=== PATIENT | male | born 1965 | race Caucasian/White ===

== ENCOUNTER 2021-03-25 19:07 | Emergency (ER) | payer BC, SELFPAY ==
[2021-03-25 19:08] VITALS: BP 118/66; PULSE 104; RESP 17; TEMP 37.3; O2SAT 96; BMI 29.5
[2021-03-25 19:10] VITALS: BP 118/66; PULSE 104; RESP 17; TEMP 37.3; O2SAT 96
[2021-03-25 19:23] VITALS: BP 124/74; PULSE 80; RESP 17; TEMP 39.3; O2SAT 98
--- NOTE | 2021-03-25 20:35 | EDS_ITS ---
HPI History of Present Illness Chief Complaint: Fever Informant: patient Onset/Context/Timing Onset: Weeks (2) Context: Gradual Onset Timing: Continuous Quality: Aching Location: Generalized Worsened by: Nothing Relieved by: Nothing Narrative Narrative: Patient presents with fever, headache, and diarrhea that has been persistent over the past several days. Patient states he was diagnosed with COVID-19 2 weeks ago. Patient states his fever at home has been up to 104. P atient states his diarrhea is watery. Patient denies any melena or hematochezia. Patient does admit there is some mild dysuria. Patient also admits to a generalized headache. Patient also admits to a sore throat. Patient denies any chest pain or shortness of breath. Patient denies any cough. PFSH PFSH Medical History no medical history no medical history Home Medications NK 03/25/21 [History Last Taken Unknown] Allergy/AdvReac Type Severity Reaction Status Date / Time No Known Allergies Allergy Verified 03/25/21 19:10 Surgical History no surgical history no surgical history Social History Smoking Status: Never smoker ROS ROS ED Constitutional Constitutional ED: Reports fever(s); Denies chills Eyes Eyes: Denies blurry vision or change in vision ENT ENT ED: Reports sore throat; Denies rhinorrhea Cardiovascular Cardiovascular: Denies chest pain or palpitations Respiratory/Chest Respiratory/Chest: Denies cough or dyspnea Gastrointestinal Gastrointestinal: Reports diarrhea; Denies nausea or vomiting Genitourinary Genitourinary ED: Reports dysuria; Denies hematuria Musculoskeletal Musculoskeletal: Denies back pain or neck pain Integumentary Denies abscess or rash Neurologic Neurologic: Reports headache(s); Denies weakness Allergic/Immunologic Allergic/Immunologic ED: Denies mouth swelling or urticaria EXAM Physical Exam Const Vital Signs: 03/25/21 19:08 03/25/21 19:10 03/25/21 19:23 Temperature 99.2 F H 99.2 F H 102.8 F H Temperature Source Temporal Temporal Oral Pulse Rate 104 H 104 H 80 Respiratory Rate 17 17 17 Blood Pressure 118/66 118/66 124/74 H Blood Pressure Mean 83 83 90 Pulse Ox 96 96 98 Oxygen Delivery Method Room Air Room Air Room Air Positive well nourished and well developed General Appearance ED: well developed HEENT Reports moist mucous membranes Neck supple and no JVD Resp normal respiratory effort and clear to auscultation bilaterally Cardio regular rate, regular rhythm and no murmurs GI normal to inspection, nondistended, normoactive bowel sounds and non-tender Palpation: soft Extremity normal to inspection General Extremety ED: Negative for edema or tenderness General Extremity: Negative for edema Neuro oriented x3, CN's II-XII intact bilaterally and no sensory deficits noted Sensorium / Orientation: alert Motor Exam: strength 5/5 throughout Psych mental status grossly normal MDM MDM MDM Narrative Medical decision making narrative: Patient was given IV fluids, Reglan, and Benadryl. Patient states his headache was feeling better. Patient was given a dose of Tylenol. CT scan of the brain was obtained. There is no acute intracranial abnormality noted. This was interpreted by the radiologist and reviewed by myself. Chest x-ray was obtained. There is 1 view. On my interpretation, there are bilateral infiltrates consistent with COVID-19 pneumonia. CBC was within normal limits. Comprehensive metabolic profile showed a potassium of 2.8. Lactate was normal. Patient was given a dose of IV and oral potassium here. Patient states his headache has resolved. Lab Data Labs: Laboratory Results - last 24 hr 03/25/21 03/25/21 03/25/21 20:45 20:45 20:45 WBC 8.1 RBC 3.98 L Hgb 11.7 L Hct 34.6 L MCV 86.9 MCH 29.4 MCHC 33.8 RDW Std Deviation 41.1 RDW Coeff of Cliff 13.0 Plt Count 241 MPV 9.4 Immature Gran % (Auto) 0.500 Neut % (Auto) 82.8 H Lymph % (Auto) 10.0 L [place] % (Auto) 6.4 Eos % (Auto) 0.1 Baso % (Auto) 0.2 Absolute Neuts (auto) 6.7 Absolute Lymphs (auto) 0.81 L Nucleated RBC % 0 Sodium 135 L Potassium 2.8 L Chloride 99 Carbon Dioxide 26.0 Anion Gap 10 BUN 13 Creatinine 0.90 Estim Creat Clear Calc 93.83 Est GFR (MDRD) Af Amer 112 Est GFR (MDRD) Non-Af 93 BUN/Creatinine Ratio 14.4 Glucose 116 H Lactic Acid 1.2 Calcium 8.6 Total Bilirubin 0.60 AST 36 ALT 40 Alkaline Phosphatase 48 Total Protein 7.4 Albumin 2.7 L Globulin 4.7 H Albumin/Globulin Ratio 0.6 L Radiography Chest X-Ray - ED: 1 View, Read by ED Physician, Read by Radiologist, Right Infiltrate and Left Infiltrate Diagnostic Testing: Radiology Impression Brain CT 03/25/21 21:06 IMPRESSION: No acute intracranial abnormality. Electronically Signed: Steven Garcia MD at 21:24 EDT Tel , Service support , Chest X-Ray 03/25/21 21:10 IMPRESSION: Scattered consolidative infiltrates in both lungs worrisome for pneumonia. ASSESSMENT: ABNORMAL report - There are abnormal findings in this report which may be related or unrelated to the reason for the exam. Electronically Signed: Preez Ramos MD at 21:41 EDT Tel , Service support , Discharge Plan Triage Chief Complaint: Fever ED Provider: Rohit Gray Dx/Rx/DC Orders Clinical Impression: Pneumonia due to COVID-19 virus, Diarrhea, Headache, Hypokalemia Instructions: Coronavirus Disease 2019 (COVID-19): Caring for Yourself or Others, ED Diarrhea, Unknown Cause, ED Hypokalemia Prescriptions: No Action NK RF: 0 Primary Care Provider: Care Physician,No Primary Referrals: Fast,Macy, DO [NON-STAFF] - 5-7 Days Care Physician,No Primary [Primary Care Provider] - Disposition Disposition: Home, Self Care
[2021-03-25] MEDS: DiphenhydrAMINE 50 MG/ML Syringe 25 MG IV (20:52)
[2021-03-25] MEDS: Acetaminophen 500 MG Tablet 1000 MG PO (20:53)
[2021-03-25] MEDS: Metoclopramide 10 MG/2 ML Vial IV (20:53)
[2021-03-25 20:58] LABS: Absolute Lymphocyte Count 0.81 X10^3/uL (0.83-4.51); Absolute Neutrophil Count 6.7 X10^3/uL (2.0-7.7); Basophil# 0.02 X10^3/uL; Basophil% 0.2 % (0-1); Eosinophil# 0.01 X10^3/uL; Eosinophils% 0.1 % (0-5); Hematocrit 34.6 % (40-54); Hemoglobin 11.7 g/dL (13.0-16.5); Lymphocyte # 0.81 X10^3/ul (0.83-4.51); Mean Corp Hgb Conc 33.8 g/dL (32-36); Mean Corpuscular Hgb 29.4 pg (27.0-32.0); Mean Corpuscular Volume 86.9 fL (80-94); Mean Platelet Vol. 9.4 fl (6.2-12.0); Monocyte# 0.52 X10^3/uL; Monocyte% 6.4 % (0-10); NRBC Flagged by Analyzer 0 % (0-5); Neutrophil # 6.68 X10^3/uL (2.7-7.7); Neutrophil % 82.8 % (47-70); Platelet Count 241 K/mm3 (150-450); RBC Distribution Width SD 41.1 fl (35.1-43.9); Red Blood Count 3.98 M/mm3 (4.6-6.2); White Blood Count 8.1 K/mm3 (4.4-11.0)
--- NOTE | 2021-03-25 21:06 | CT_ITS ---
EXAMINATION : Head CT w/out contrast HISTORY : Pain COMPARISON : None. TECHNIQUE : Multiple contiguous axial images were obtained from the skull base to the vertex without intravenous contrast. A radiation dose optimization technique was used for this scan. FINDINGS : The ventricles and sulci are normal in size. There is no evidence for acute intracranial hemorrhage, mass effect, or midline shift. There is no extra-axial fluid collection. There is normal melton-white differentiation, without CT evidence of acute ischemia or infarct. The skull base and calvarium are unremarkable. The orbits are unremarkable. The paranasal sinuses are clear. The mastoid air cells are well-aerated. The soft tissues are unremarkable. CT/Brain/Head without Contrast IMPRESSION: No acute intracranial abnormality. Electronically Signed: Steven Garcia MD at 21:24 EDT Tel , Service support ,
--- NOTE | 2021-03-25 21:10 | RAD_ITS ---
EXAM: XR Chest, 1 View CLINICAL INDICATION: 55 years old, Male; cough TECHNIQUE: Frontal view of the chest. This report was created using [employer] report generation technology. COMPARISON: None. FINDINGS: Lungs and pleural spaces: Scattered consolidative infiltrates in both lungs worrisome for pneumonia. No pneumothorax. No effusion. Heart: Unremarkable. Cardiac silhouette not enlarged. Mediastinum: Central airways and mediastinal contour are unremarkable. Bones/joints: Unremarkable. Soft tissues: Unremarkable. RAD/Chest 1 View (Portable) IMPRESSION: Scattered consolidative infiltrates in both lungs worrisome for pneumonia. ASSESSMENT: ABNORMAL report - There are abnormal findings in this report which may be related or unrelated to the reason for the exam. Electronically Signed: Perez Ramos MD at 21:41 EDT Tel , Service support ,
[2021-03-25 21:14] LABS: ALB/GLOB Ratio 0.6 RATIO (0.9-2.4); AST(SGOT) 36 U/L (15-37); Alanine Aminotransfer ALT/SGPT 40 U/L (16-61); Albumin, Serum 2.7 g/dL (3.2-5.0); Alkaline Phosphatase 48 U/L (45-117); Anion Gap 10 (5-15); BUN 13 mg/dL (7-18); BUN/Creat Ratio 14.4 RATIO (10-20); Calcium,Total 8.6 mg/dL (8.5-10.1); Chloride 99 mmol/L (98-107); EST Glomerular Filtration Rate 93 mL/min (>60); Est Glom Filt Rate - Afr Amer 112 mL/min (>60); Estimated Creatinine Clearance 93.83 ml/min; Globulin 4.7 g/dL (2.2-4.2); Glucose 116 mg/dL (74-106); Potassium 2.8 mmol/L (3.5-5.1); Protein, Total 7.4 g/dL (6.4-8.2); Sodium Level 135 mmol/L (136-145)
[2021-03-25 21:22] LABS: Lactic Acid 1.2 mmol/L (0.4-1.9)
[2021-03-25] MEDS: Potassium Chloride 10mEq/100mL 10 MEQ/100 ML IV.SOLN. 100 MEQ IV BOLUS (22:22)
[2021-03-25] MEDS: Potassium Chloride Oral Tablet 20 MEQ 40 MEQ PO (22:22)
[2021-03-25 22:26] VITALS: BP 102/62; PULSE 74; RESP 21; TEMP 37.1; O2SAT 99
[2021-03-25 22:27] VITALS: BP 102/62; PULSE 74; RESP 17; RESP 19; TEMP 37.1; O2SAT 96
[2021-03-25 23:40] VITALS: BP 112/77; PULSE 69; RESP 19
== END 2021-03-25 23:40 | disposition home or self-care (01) ==
PROVIDERS: Emergency Provider Emergency Medicine
DX: U07.1 COVID-19 (principal); J12.82 Pneumonia due to coronavirus disease 2019; E87.6 Hypokalemia; R19.7 Diarrhea, unspecified; R51.9 Headache, unspecified; R30.0 Dysuria
CPT/HCPCS: 70450; 71045; 80053; 83605; 85025; 87040; 96365; 96366; 96375; 99285; J7030; J7050; A4216

== ENCOUNTER 2021-04-02 16:22 | Outpatient (CLI) | payer BC, SELFPAY ==
[2021-04-02 17:56] LABS: Absolute Lymphocyte Count 1.59 X10^3/uL (0.83-4.51); Absolute Neutrophil Count 2.9 X10^3/uL (2.0-7.7); Basophil# 0.02 X10^3/uL; Basophil% 0.4 % (0-1); Eosinophil# 0.08 X10^3/uL; Eosinophils% 1.6 % (0-5); Hematocrit 37.9 % (40-54); Hemoglobin 12.1 g/dL (13.0-16.5); Lymphocyte # 1.59 X10^3/ul (0.83-4.51); Lymphocyte % 31.9 % (19-41); Mean Corp Hgb Conc 31.9 g/dL (32-36); Mean Corpuscular Hgb 28.7 pg (27.0-32.0); Mean Platelet Vol. 9.5 fl (6.2-12.0); Monocyte# 0.42 X10^3/uL; Monocyte% 8.4 % (0-10); NRBC Flagged by Analyzer 0 % (0-5); Neutrophil # 2.85 X10^3/uL (2.7-7.7); Neutrophil % 57.3 % (47-70); Platelet Count 370 K/mm3 (150-450); RBC Distribution Width CV 13.5 % (11.6-14.6); RBC Distribution Width SD 43.8 fl (35.1-43.9); Red Blood Count 4.21 M/mm3 (4.6-6.2)
[2021-04-02 18:33] LABS: ALB/GLOB Ratio 0.7 RATIO (0.9-2.4); AST(SGOT) 26 U/L (15-37); Alanine Aminotransfer ALT/SGPT 62 U/L (16-61); Albumin, Serum 2.9 g/dL (3.2-5.0); Alkaline Phosphatase 67 U/L (45-117); Anion Gap 5 (5-15); BUN 5 mg/dL (7-18); BUN/Creat Ratio 6.5 RATIO (10-20); Calcium,Total 8.6 mg/dL (8.5-10.1); Chloride 106 mmol/L (98-107); Creatinine, Serum 0.77 mg/dL (0.70-1.30); EST Glomerular Filtration Rate 111 mL/min (>60); Est Glom Filt Rate - Afr Amer 134 mL/min (>60); Globulin 4.3 g/dL (2.2-4.2); Glucose 97 mg/dL (74-106); Potassium 3.5 mmol/L (3.5-5.1); Protein, Total 7.2 g/dL (6.4-8.2); Sodium Level 143 mmol/L (136-145)
== END 2021-04-02 23:59 | disposition home or self-care (01) ==
PROVIDERS: PCP Internal Medicine; Referring Provider Internal Medicine; Visit Provider Internal Medicine
DX: U07.1 COVID-19 (principal); E87.6 Hypokalemia
CPT/HCPCS: 36415; 80053; 85025

== ENCOUNTER → 2021-04-07 14:07 | Outpatient (CLI) | payer BC, SELFPAY ==
--- NOTE | 2021-04-07 14:09 | RAD_ITS ---
STUDY: X-RAY CHEST REASON FOR EXAM: Male, 56 years old. COVID TECHNIQUE: PA and lateral views of the chest. COMPARISON: 03/25/2021 FINDINGS: Similar left greater than right mid to lower lung infiltrates. There is no demonstrated pleural abnormality. Normal size heart. Normal mediastinum and ebony. Normal visualized pulmonary arteries. Normal visualized aortic arch and descending thoracic aorta. There are diffuse degenerative changes of the visualized thoracic spine. There is no demonstrated abnormality of the visualized soft tissue structures of the upper abdomen. RAD/Chest PA and Lateral IMPRESSION: Similar appearance of Covid pneumonia compared to 03/25/2021. Electronically Signed: Jorge Alberto He MD at 4:39 EDT Tel , Service support ,
== END ==
PROVIDERS: PCP Internal Medicine; Referring Provider Internal Medicine; Visit Provider Internal Medicine
DX: U07.1 COVID-19 (principal)
CPT/HCPCS: 71046

== ENCOUNTER 2021-04-18 14:59 | Outpatient (CLI) | payer BC, SELFPAY ==
[2021-04-18 15:23] LABS: D-Dimer Quantitative (DVT/PE) 0.31 FEU/ug/m (0.27-0.49)
[2021-04-18 15:41] LABS: ALB/GLOB Ratio 0.9 RATIO (0.9-2.4); AST(SGOT) 19 U/L (15-37); Alanine Aminotransfer ALT/SGPT 34 U/L (16-61); Albumin, Serum 3.7 g/dL (3.2-5.0); Alkaline Phosphatase 68 U/L (45-117); Anion Gap 8 (5-15); BUN 13 mg/dL (7-18); BUN/Creat Ratio 16.4 RATIO (10-20); Calcium,Total 8.7 mg/dL (8.5-10.1); Chloride 99 mmol/L (98-107); EST Glomerular Filtration Rate 107 mL/min (>60); Est Glom Filt Rate - Afr Amer 130 mL/min (>60); Glucose 91 mg/dL (74-106); Potassium 4.1 mmol/L (3.5-5.1); Protein, Total 7.7 g/dL (6.4-8.2); Sodium Level 135 mmol/L (136-145); Troponin-I HS 3 pg/mL (3.0-78.0)
== END 2021-04-18 23:59 | disposition home or self-care (01) ==
LOC: LABSPEC 15:01
PROVIDERS: PCP Internal Medicine; Visit Provider Internal Medicine
DX: U07.1 COVID-19 (principal); R07.9 Chest pain, unspecified
CPT/HCPCS: 80053; 84484; 85379

== ENCOUNTER 2021-05-09 10:27 | Outpatient (CLI) | payer BC, SELFPAY ==
[2021-05-09 10:43] LABS: Absolute Lymphocyte Count 1.48 X10^3/uL (0.83-4.51); Basophil# 0.03 X10^3/uL; Basophil% 0.5 % (0-1); Eosinophil# 0.25 X10^3/uL; Eosinophils% 3.9 % (0-5); Hemoglobin 13.1 g/dL (13.0-16.5); Lymphocyte # 1.48 X10^3/ul (0.83-4.51); Lymphocyte % 23.3 % (19-41); Mean Corp Hgb Conc 33.6 g/dL (32-36); Mean Corpuscular Hgb 30.3 pg (27.0-32.0); Mean Corpuscular Volume 90.1 fL (80-94); Mean Platelet Vol. 9.2 fl (6.2-12.0); Monocyte# 0.51 X10^3/uL; NRBC Flagged by Analyzer 0 % (0-5); Neutrophil # 4.03 X10^3/uL (2.7-7.7); Neutrophil % 63.7 % (47-70); Platelet Count 270 K/mm3 (150-450); RBC Distribution Width CV 14.7 % (11.6-14.6); RBC Distribution Width SD 49.2 fl (35.1-43.9); Red Blood Count 4.33 M/mm3 (4.6-6.2); White Blood Count 6.3 K/mm3 (4.4-11.0)
[2021-05-09 10:59] LABS: D-Dimer Quantitative (DVT/PE) 0.55 FEU/ug/m (0.27-0.49)
[2021-05-09 11:05] LABS: ALB/GLOB Ratio 0.9 RATIO (0.9-2.4); AST(SGOT) 21 U/L (15-37); Alanine Aminotransfer ALT/SGPT 41 U/L (16-61); Albumin, Serum 3.6 g/dL (3.2-5.0); Alkaline Phosphatase 64 U/L (45-117); Anion Gap 2 (5-15); BUN 12 mg/dL (7-18); BUN/Creat Ratio 15.1 RATIO (10-20); Calcium,Total 8.6 mg/dL (8.5-10.1); Chloride 103 mmol/L (98-107); EST Glomerular Filtration Rate 107 mL/min (>60); Est Glom Filt Rate - Afr Amer 130 mL/min (>60); Globulin 3.9 g/dL (2.2-4.2); Glucose 91 mg/dL (74-106); Potassium 4.2 mmol/L (3.5-5.1); Protein, Total 7.5 g/dL (6.4-8.2); Sodium Level 133 mmol/L (136-145); Troponin-I HS 4 pg/mL (3.0-78.0)
== END 2021-05-09 23:59 | disposition home or self-care (01) ==
LOC: LABSPEC 10:29
PROVIDERS: PCP Internal Medicine; Visit Provider Internal Medicine
DX: U07.1 COVID-19 (principal); R07.9 Chest pain, unspecified
CPT/HCPCS: 80053; 84443; 84484; 85025; 85379

== ENCOUNTER 2021-05-09 12:15 | Outpatient (CLI) | payer BC, SELFPAY ==
--- NOTE | 2021-05-09 12:41 | CT_ITS ---
STUDY: CTA CHEST REASON FOR EXAM: Male, 56 years old. POSITIVE D DIMER RADIATION DOSAGE (If Supplied By Facility): CTDIvol = ( 12.10 ) mGy, DLP = ( 484.64 ) mGycm TECHNIQUE: The examination was performed with the intravenous administration of IV 100mL [id number]-[id number]. Post-processing of the angiographic images was performed, with multiplanar reformation and 3D reconstruction. Individualized dose optimization techniques were used for this CT. COMPARISON: None. FINDINGS: Normal enhancement of the main pulmonary artery and right and left pulmonary arteries. Normal enhancement of the bilateral peripheral pulmonary arteries. There is no demonstrated pulmonary embolism. Normal thoracic aorta and visualized great vessels. There is no demonstrated aortic dissection. Normal heart and pericardium. There are visualized mediastinal lymph nodes, which are within normal size limits, and with normal morphology. Normal hilar regions. Normal visualized trachea and bronchi. The lungs are well expanded. There are mild increased markings in the anterior aspect of the left upper lobe. Mild increased markings are also seen in the lingular segment of the left upper lobe as well as in the left lung base suggestive of either mild pneumonitis versus resolving pneumonitis. Mild increased markings are also seen at the right lung base. Normal pleura. Normal chest wall structures. There are degenerative changes of thoracic spine. Normal visualized upper abdomen. CT/CTA Chest W/WO Contrast IMPRESSION: No evidence of pulmonary emboli. Mild degree of residual increased markings in both lungs as described suggestive of either persistent pneumonitis versus resolving pneumonitis. Electronically Signed: Leonard Pérez MD at 13:57 EST , Service support ,
== END 2021-05-09 23:59 | disposition home or self-care (01) ==
PROVIDERS: PCP Internal Medicine; Referring Provider Internal Medicine; Visit Provider Internal Medicine
DX: U07.1 COVID-19 (principal); R79.89 Other specified abnormal findings of blood chemistry
CPT/HCPCS: 71275; Q9967

== ENCOUNTER 2021-05-22 11:54 | Outpatient (CLI) | payer BC, SELFPAY ==
--- NOTE | 2021-05-23 13:00 | STRESSREP_ITS ---
Stress Test Report Date: 05/22/2021 Procedure: Exercise tolerance test Indications: Chest pain Consent: Per the patient Procedure: The patient exercised on a Obi protocol for 7 minutes and 45 seconds achieving a peak heart rate of 142 bpm (86% predicted maximal heart rate) with a peak blood pressure 154/72 mmHg and a peak MET capacity of approximately 10.1 MET's. The baseline ECG demonstrated normal sinus rhythm. The peak exercise ECG demonstrated no significant ischemic changes. [There were no cardiac dysrhythmias pretest, during exercise, or recovery]. The functional capacity was considered normal for age. The patient had no complaint of chest discomfort during exercise or recovery. The examination was discontinued secondary to shortness of breath. Impression: 1. Technically adequate (percent predicted maximal heart rate greater than 85%) exercise tolerance test 2. Stress test is negative for exercise-induced chest pain. 3. Stress test test is negative for exercise-induced EKG changes of ischemia. 4. Functional capacity is normal for age This note was generated with [employer] software. It may contain incorrect words, spelling, and punctuation that were not noted in checking the note before signing.
== END 2021-05-22 23:59 | disposition home or self-care (01) ==
PROVIDERS: PCP Internal Medicine; Referring Provider Internal Medicine; Visit Provider Internal Medicine
DX: U07.1 COVID-19 (principal); R07.9 Chest pain, unspecified
CPT/HCPCS: 93017